=== PATIENT | female | born 1930 | race Caucasian/White ===

== ENCOUNTER 2016-10-15 12:46 | Emergency (ER) | payer MEDICARE, BC, OTHER ==
--- NOTE | ~2016-10-15 | EKG ---
PATIENT: MATEO BHAKTA UNIT #: [id number] Ventricular Rate: 68 BPM Atrial Rate: 77 BPM QRS Duration: 108 ms Q-T Interval: 406 ms QTC Calculation(Bezet): 431 ms Calculated R Doyline: 79 degrees Calculated T Doyline: 44 degrees Diagnosis Line: Atrial fibrillation with premature ventricular or Diagnosis Line: aberrantly conducted complexes Diagnosis Line: Abnormal ECG Diagnosis Line: When compared with ECG of 10-OCT-2014 00:48, Diagnosis Line: Minimal criteria for Anterior infarct are no Diagnosis Line: longer Present Diagnosis Line: T wave amplitude has increased in Anterior leads Diagnosis Line: Confirmed by NOAM SIFUENTES MD ([id number]) on 10/17/2016 Diagnosis Line: 7:01:58 AM INTERPRETING MD: MARIA ARROYO
--- NOTE | ~2016-10-15 | CR72 ---
[facility] A Service of [facility] & [facility] RADIOLOGY TEXT RESULTS PATIENT: MATEO BHAKTA LOCATION: [facility] : 30 UNIT #: [id number] AGE: [address]: Benitez Sierra MD SEX: F ORDER DR: [id number] [facility] [address] [place], [place] [address] [id number] E MR#: [id number] Acc #: [id number] NAME: MATEO BHAKTA : 1930 SEX: F STUDY DATE/TIME: 10/15/2016 12:45 UNIT: [facility] ROOM: STUDY DESCRIPTION: CR Chest Single View Portable Attending Physician: Benitez Sierra M.D. Ordering Physician: Benitez Sierra M.D. Primary Care Physician: Marcial Schofield M.D. MEDICAL IMAGING REPORT This report is preliminary unless electronic signature is present EXAM AP portable chest. HISTORY Short of breath for 3 days. FINDINGS An AP view is obtained. Cardiac size is stable. Vascular markings are normal, and the lungs appear clear with no acute process seen. CONCLUSION Stable chest. No acute process identified. Dictated by... Krunal Gorman M.D. THIS IS AN ELECTRONICALLY VERIFIED REPORT Krunal Gorman M.D. at 10/18/2016 7:20 AM Ian TD: 10/15/2016 17:01 JOB #: [id number] MEDICAL IMAGING REPORT Page 1 of 1 COPY
[~2016-10-15 12:46] MED LIST: ACETAMINOPHEN; AMIODARONE PO; AMOXICILLIN PO; APRESOLINE PO; ASPIRIN PO; ASPIRIN81 M1 PO; ASPIRIN81 M2 PO; ATIVAN PO; ATIVAN2 M1 PO; ATIVAN2 MG PO; CENTRUM PO; CERTAGEN PO; COUMADIN PO; COUMADIN2.5 MG PO; COUMADIN5 MG PO; EFFER-K 20 MEQ20 MEQ PO; FUROSEMIDE40 MG PO; HCTZ PO; HYDRALAZINE HCL25 MG PO; HYDRALAZINE HCL50 MG PO; K-DUR20 ME1 DOB; KCL PO; LASIX PO; LEVALBUTER1.25 MG/0. IH; METOPROLOL SUCC25 MG PO; NITROSTAT0.4 MG SL; PANTOPRAZOLE SO40 MG PO; PAROXETINE HC12.5 MG PO; PAXIL CR PO; PAXIL CR12.5 MG PO; PROMETHAZINE V240 ML PO; PROTONIX PO; QNASL8.7 GM NS; TOPROL XL 50 MG50 MG PO; TOPROL XL PO; TRAMADOL; TYLENOL325 M1 PO; ULTRACET TABLET1 TAB PO; ULTRAM PO; VICODIN PO; XOPENEX1.25 MG/3 IH; ZITHROMAX500 MG PO
[2016-10-15 12:51] LABS: POC - CKMB 2.1 ng/mL (0.0-7.9); POC - TROPONIN <0.05 ng/mL (<=0.05)
[2016-10-15 12:57] LABS: BASOPHIL# 0.1 X10e3 (0-0.3); EOSINOPHIL# 0.1 X10e3 (0-0.7); EOSINOPHIL% 1.9 % (0.0-7.0); HEMATOCRIT 31.7 % (35.0-45.0); HEMOGLOBIN 10.2 gm/dL (12.0-16.0); LYMPHOCYTE# 0.5 X10e3 (1.0-3.5); LYMPHOCYTE% 9.2 % (17.0-45.0); MEAN CELL VOLUME 84.8 FL (83-96); MEAN CORPUSCULAR HEMOGLOBIN 27.2 PG (28-34); MEAN CORPUSCULAR HGB CONC 32.1 g/dL (30-36); MONOCYTE# 0.3 X10e3 (0-1.0); MONOCYTE% 5.8 % (3.0-12.0); NEUTROPHIL# 4.6 X10e3 (1.5-7.1); NEUTROPHIL% 82.1 % (40-75); PLATELET COUNT 265 X10e3 (140-420); RED BLOOD COUNT 3.74 X10e (3.90-5.30); RED CELL DISTRIBUTION WIDTH 14.7 % (11.0-15.5); WHITE BLOOD COUNT 5.6 X10e3 (4.0-10.5)
[2016-10-15 13:00] LABS: DIFF IND NO
[2016-10-15 13:08] LABS: INR 2.2; PROTHROMBIN TIME (PATIENT) 23.9 SECONDS (9.6-11.5)
[2016-10-15 13:20] LABS: ALBUMIN SERUM 3.7 g/dL (3.5-5.0); BILIRUBIN, DIRECT 0.2 mg/dL (0.0-0.2); BILIRUBIN,INDIRECT 0.9 mg/dL (0.0-0.9); BILIRUBIN,TOTAL 1.1 mg/dL (0.2-2.0); BUN/CREATININE RATIO 26.25; CREATININE SERUM 0.8 mg/dL (0.6-1.4); GLOM FILT RATE Estimated 67.3 mL/min (>60); POTASSIUM 3.7 mmol/L (3.5-5.1); PROTEIN TOTAL SERUM 6.6 g/dL (6.0-8.3)
== END 2016-10-15 14:00 | disposition home or self-care (01) ==
LOC: CED 12:46
PROVIDERS: Emergency Medicine
DX: R53.1 Weakness (principal); J44.9 Chronic obstructive pulmonary disease, unspecified; I48.91 Unspecified atrial fibrillation
CPT/HCPCS: 36415; 71010; 80048; 80076; 82553; 84484; 85025; 85610; 86850; 86900; 86901; 93005; 99283

== ENCOUNTER 2017-01-04 14:14 | Emergency (ER) | payer MEDICARE, BC, OTHER ==
--- NOTE | ~2017-01-04 | CR71 ---
[facility] A Service of [facility] & [facility] RADIOLOGY TEXT RESULTS PATIENT: MATEO BHAKTA LOCATION: [facility] : 30 UNIT #: [id number] AGE: [address]: Kiet Morel MD SEX: F ORDER DR: [id number] [facility] [address] [place], [place] [address] [id number] E MR#: [id number] Acc #: [id number] NAME: MATEO BHAKTA : 1930 SEX: F STUDY DATE/TIME: 01/04/2017 15:49 UNIT: [facility] ROOM: STUDY DESCRIPTION: CR Chest Single View Attending Physician: Kiet Morel M.D. Ordering Physician: Kiet Morel M.D. Primary Care Physician: Marcial Schofield M.D. MEDICAL IMAGING REPORT This report is preliminary unless electronic signature is present EXAM Portable chest HISTORY Chest pain and shortness of air and right rib pain today after fall yesterday. FINDINGS Mild cardiac enlargement. Normal pulmonary vascularity. Tortuous descending thoracic aorta. Incidental calcified mediastinal and hilar nodes and small, calcified granulomas in both lungs. IMPRESSION No acute findings. Dictated by... Anderson Haile M.D. THIS IS AN ELECTRONICALLY VERIFIED REPORT Anderson Haile M.D. at 01/05/2017 11:29 PM DFL/psc TD: 01/05/2017 02:48 JOB #: [id number] MEDICAL IMAGING REPORT Page 1 of 1 COPY
== END 2017-01-04 17:30 | disposition home or self-care (01) ==
LOC: CED 14:14
DX: S20.211A Contusion of right front wall of thorax, initial encounter (principal); I10 Essential (primary) hypertension; J44.9 Chronic obstructive pulmonary disease, unspecified; I48.91 Unspecified atrial fibrillation; W18.30XA Fall on same level, unspecified, initial encounter; Y92.009 Unspecified place in unspecified non-institutional (private) residence as the place of occurrence of the external cause
CPT/HCPCS: 71010; 99283

== ENCOUNTER → 2017-01-17 | Outpatient (CLI) | payer MEDICARE, BC, OTHER ==
--- NOTE | ~2017-01-17 | CT7 ---
[facility] A Service of [facility] RADIOLOGY TEXT RESULTS PATIENT: MATEO BHAKTA LOCATION: [facility] : 30 UNIT #: [id number] AGE: [address]: Marcial Schofield MD SEX: F ORDER DR: [id number] [id number] [facility] [place], [place] [address] [id number] O MR#: [id number] Acc #: [id number] NAME: MATEO BHAKTA : 1930 SEX: F STUDY DATE/TIME: 01/17/2017 12:25 UNIT: [facility] ROOM: STUDY DESCRIPTION: CT Abdomen Wo Cont Attending Physician: Marcial Schofield M.D. Referring Physician: Marcial Schofield M.D. Ordering Physician: Marcial Schofield M.D. Primary Care Physician: Marcial Schofield M.D. MEDICAL IMAGING REPORT This report is preliminary unless electronic signature is present EXAM CT abdomen INDICATION Abdominal pain. Right upper quadrant pain. Recent fall. TECHNIQUE CT of the abdomen without contrast. Coronal and sagittal reconstructions were obtained. This CT exam was performed with one or more of the following radiation dose reduction techniques: automatic exposure control, adjustment of mA and/or kV according to patient size, and iterative reconstruction. COMPARISON None available. FINDINGS The noncontrast evaluation of the solid abdominal organs are within normal limits. Gallbladder is not distended. The bowel is not dilated. There is no abnormal lymph node at the origin of the mesentery measuring 4.3 x 2.8 cm. This is a new finding from the patient's most recent comparison CT chest of 10/31/2011. No acute osseous abnormalities. IMPRESSION 1. No acute traumatic findings in the abdomen. 2. Abnormal lymph node conglomeration at the root of the mesentery measuring up to 4.3 cm. This is concerning for possible metastatic disease or lymphoma. Recommend further evaluation with contrast enhanced study to include the pelvis and possibly a chest CT to [facility] A Service of [facility] RADIOLOGY TEXT RESULTS PATIENT: MATEO BHAKTA [facility] 30 UNIT #: [id number] AGE: [address]: Marcial Schofield MD SEX: F ORDER DR: evaluate for additional marissa involvement. STAT * RESULT Dictated by... Elvis Molina M.D. THIS IS AN ELECTRONICALLY VERIFIED REPORT Elvis Molina M.D. at 01/17/2017 3:47 PM MARCO A/jay TD: 01/17/2017 12:55 JOB #: [id number] MEDICAL IMAGING REPORT Page 1 of 1 COPY
== END | disposition home or self-care (01) ==
LOC: CCAT 12:00
DX: R10.11 Right upper quadrant pain (principal); R59.0 Localized enlarged lymph nodes; W19.XXXA Unspecified fall, initial encounter
CPT/HCPCS: 74150

== ENCOUNTER → 2017-01-21 | Outpatient (CLI) | payer MEDICARE, BC, OTHER ==
--- NOTE | ~2017-01-21 | CT2 ---
[facility] A Service of [facility] & [facility] RADIOLOGY TEXT RESULTS PATIENT: MATEO BHAKTA LOCATION: [facility] : 30 UNIT #: [id number] AGE: [address]: Marcial Schofield MD SEX: F ORDER DR: [id number] [facility] [address] [place], [place] [address] [id number] O MR#: [id number] Acc #: [id number] NAME: MATEO BHAKTA : 1930 SEX: F STUDY DATE/TIME: 01/21/2017 15:00 UNIT: [facility] ROOM: STUDY DESCRIPTION: CT Abd and Pelv W Cont Attending Physician: Marcial Schofield M.D. Referring Physician: Marcial Schofield M.D. Ordering Physician: Marcial Schofield M.D. Primary Care Physician: Marcial Schofield M.D. MEDICAL IMAGING REPORT This report is preliminary unless electronic signature is present EXAM CT of the abdomen and pelvis with contrast. CLINICAL HISTORY This patient had a CT performed on January 17, 2017, which showed a mesenteric mass worrisome for metastatic disease or lymphoma. Further evaluation with contrast enhanced study was suggested for additional evaluation. TECHNIQUE Axial CT images were obtained from the dome of the diaphragm to the symphysis pubis, following the administration of oral and intravenous contrast material. This CT exam was performed with one or more of the following radiation dose reduction techniques: automatic exposure control, adjustment of mA and/or kV according to patient size, and iterative reconstruction. Patient's CT of the chest will be dictated separately. FINDINGS Calcified granulomata are seen within the spleen. The stomach and proximal small bowel are within normal limits. Adrenal glands appear unremarkable. Pancreas is atrophic. Gallbladder appears normal. I do think this patient may have a cirrhotic morphology to the liver. Correlation with laboratory values is suggested. I do not see any definite focal hepatic lesions and certainly there is no evidence of portal hypertension, as was identified on the prior examination. There is a mass involving the root of the mesentery measuring up to 3.9 x 2.7 cm which is certainly worrisome for malignancy. Differential again includes some metastatic disease and lymphoma. It is not amenable to percutaneous biopsy. There is no evidence of mechanical bowel obstruction. Uterus appears unremarkable. Full evaluation of structures within the pelvis is severely limited due to streak artifact from the patient's bilateral hip STS. [facility] A Service of [facility] RADIOLOGY TEXT RESULTS PATIENT: MATEO BHAKTA [id number] 30 UNIT #: [id number] AGE: [address]: Marcial Schofield MD SEX: F ORDER DR: arthroplasties. I do not see any definite free fluid or adenopathy within the pelvis. There is lumbar scoliosis with convexity to the left, and this patient has undergone a prior kyphoplasty at L2. There is atherosclerotic involvement of the abdominal aorta which continues into the visceral vessels. This does result in significant narrowing at the origin of the celiac axis, and milder narrowing at the origin of the superior mesenteric artery. IMPRESSION 1. Patient is again noted to have 3.9 x 2.7 cm mass involving the root of the mesentery, as was discussed on the prior examination, main differential considerations would include both metastatic disease and lymphoma; although, lymphoma, I think would be favored. This mass is not amendable to percutaneous biopsy, I do not see any other suspicious adenopathy within the abdomen or pelvis. Please note full evaluation of the pelvis is limited due to significant streak artifact from bilateral hip arthroplasties. 2. Question a cirrhotic morphology of the liver. No focal hepatic lesions are seen and there is no evidence of portal hypertension on these images. 3. Extensive atherosclerotic involvement of the abdominal aorta with extension into the origins of the visceral vessels. 4. Patient's CT of the chest will be dictated separately. Dictated by... Toma Miranda M.D. THIS IS AN ELECTRONICALLY VERIFIED REPORT Toma Miranda M.D. at 01/23/2017 1:06 PM FALGUNI/michelle TD: 01/22/2017 15:40 JOB #: [id number] MEDICAL IMAGING REPORT Page 1 of 1 COPY
--- NOTE | ~2017-01-21 | CT55 ---
[facility] A Service of [facility] & [facility] RADIOLOGY TEXT RESULTS PATIENT: MATEO BHAKTA LOCATION: [facility] : 30 UNIT #: [id number] AGE: [address]: Marcial Schofield MD SEX: F ORDER DR: [id number] [facility] [address] [place], [place] [address] [id number] O MR#: [id number] [facility] #: [id number] NAME: MATEO BHAKTA : 1930 SEX: F STUDY DATE/TIME: 01/21/2017 15:00 UNIT: [facility] ROOM: STUDY DESCRIPTION: CT Chest W Con Attending Physician: Marcial Schofield M.D. Referring Physician: Marcial Schofield M.D. Ordering Physician: Marcial Schofield M.D. Primary Care Physician: Marcial Schofield M.D. MEDICAL IMAGING REPORT This report is preliminary unless electronic signature is present EXAM CT of the chest with contrast INDICATION This patient has had a CT of the abdomen and pelvis without contrast performed January 17, 2017 which showed a mass in the root of the mesentery. This exam is requested for surveillance for metastatic disease. TECHNIQUE Axial CT images were obtained from the thoracic inlet through the dome of the diaphragm following the administration of intravenous contrast material. This CT exam was performed with one or more of the following radiation dose reduction techniques: automatic exposure control, adjustment of mA and/or kV according to patient size, and iterative reconstruction. FINDINGS Background emphysematous changes are noted. This patient has a 1.1 cm nodule within the right upper lobe. This is indeterminate. It was not present on the prior examination but still may reflect an inflammatory or infectious nodule but given findings within the abdomen I would suggest further evaluation with PET. Percutaneous biopsy is felt to be of low yield due to its small size. The thyroid gland is enlarged and heterogeneous. Similar findings were present on the exam from the October 2011. Certainly it would be better assessed with dedicated thyroid ultrasound. There is no pleural or pericardial effusion. There is an enlarged precarinal node measuring up to about 2.0 x 2.1 cm but this is unchanged when compared to 2011, thus it is felt to be benign. Patient's CT of the abdomen will be dictated separately. No aggressive osseous abnormalities are seen. IMPRESSION [facility] A Service of [facility] RADIOLOGY TEXT RESULTS PATIENT: MATEO BHAKTA LOCATION: [facility] : 30 UNIT #: [id number] AGE: [address]: Marcial Schofield MD SEX: F ORDER DR: 1. 1.1 cm nodule seen at the right lung apex is new when compared to the prior examination. It is indeterminate but certainly could reflect a benign finding given background emphysematous changes as well as a mass within the root of the mesentery. I would suggest further evaluation with PET. Percutaneous biopsy is felt to be of low yield due to the very small size of this nodule. 2. Enlarged precarinal lymph node. This has been present on exams dating back to 2011 and is unchanged and is felt to be benign. 3. 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 Similar findings were present on the exam from October 2011. Patient's CT of the abdomen and pelvis will be dictated separately. Dictated by... Toma Miranda M.D. THIS IS AN ELECTRONICALLY VERIFIED REPORT Toma Miranda M.D. at 01/23/2017 1:07 PM FALGUNI/jay TD: 01/22/2017 15:50 JOB #: [id number] MEDICAL IMAGING REPORT Page 1 of 1 COPY
[2017-01-21 15:00] LABS: POC - CREATININE 0.82 mg/dL (0.44-1.03); POC - GFR >60.0 mL/min (>60)
== END | disposition home or self-care (01) ==
LOC: CCAT 13:23
PROVIDERS: Family Medicine
DX: K52.9 Noninfective gastroenteritis and colitis, unspecified (principal); R93.5 Abnormal findings on diagnostic imaging of other abdominal regions, including retroperitoneum; R10.11 Right upper quadrant pain; I77.89 Other specified disorders of arteries and arterioles; I70.0 Atherosclerosis of aorta; R91.1 Solitary pulmonary nodule; W19.XXXA Unspecified fall, initial encounter
CPT/HCPCS: 71260; 74177; 82565; Q9967